=== PATIENT | male | born 1965 | race Caucasian/White ===

== ENCOUNTER 2023-11-30 07:43 | Emergency (ER) | payer OTHER, SELFPAY ==
[2023-11-30 07:50] VITALS: BP 138/88; PULSE 60; RESP 14; O2SAT 98
--- NOTE | 2023-11-30 07:57 | ED.GENADUL_ITS ---
Discharge Plan Disposition Patient Disposition: Home Condition: Stable Discharge Details Clinical Impression: Right ureteral stone ED Provider: Luis Lord Home Meds and New Rx's Prescriptions: New tamsulosin 0.4 mg capsule 0.4 mg PO DAILY Qty: 30 0RF ketorolac 10 mg tablet 10 mg PO QID 5 Days Qty: 20 0RF Rx Instructions: maximum total duration of 5 days from all oral, intranasal, or parenteral formulations ondansetron 4 mg tablet,disintegrating 4 mg PO Q8H PRN (Reason: nausea) Qty: 30 0RF No Action atorvastatin 40 mg tablet lisinopril 20 mg tablet 20 mg Patient Comments: take 1 tablet by mouth once daily FOR HYPERTENSION Discharge Instructions Instructions: Ketorolac (By mouth), Ondansetron (By mouth), Tamsulosin (By mouth), Ureteral Stones (ED) Additional Instructions: You were seen in the emergency department for your right flank pain radiating around to your right lower abdomen, you have a 6 mm stone in your distal right ureter but there is no sign of infected kidney stone, no sign of sepsis. I spoke with urology and this is reasonable to try to pass the stone as an outpatient at home. I have sent I have sent tamsulosin which helps dilate the in [place]. prescriptions for some symptomatic relief medicines to your pharmacy urinary system to allow easier passage of the stone, I have sent an ant i-inflammatory called ketorolacto take for the next 5 days, take 1000 mg of Tylenol 4 times per day about alf in between anti-inflammatory doses as well. I have sent ondansetron a dissolving tablet that goes under your tongue for nausea to take 3 times per day, please stay aggressively hydrated to help push the stone through your urinary system. I have sent you home with a small to go pack of oxycodone for breakthrough pain for the first day or 2. Please return to the emergency department should you develop severe increase in pain especially with urinary retention, worsening fevers. Please follow-up with urology as needed, I can send a referral to our urology practice but if you are already connected with your history of kidney stones through another practice please follow-up with them. Referrals: [facility] [Provider Group] HPI General Date/Time Provider Initiated Documentation: 11/30/23 07:56 . HPI Narrative: 58 year-old male presents to ED today by POV/ambulating with his with a chief complaint of R flank pain, radiating around to his anterior lower abdomen and testicular pain with onset noted this morning around 0400. Quality described as different than past kidney stone pain, significant causing nausea, denies heavy lifting but was shoveling snow all day yesterday, no radiation to vomiting, discharge, dysuria, other abdominal pain, chest pain, shortness of breath, fever- does endorse sweating due to pain earlier this morning. Severity is described as 04/16. Palliating factors include took 1g Tylenol just prior to arrival. Provoking factors include nothing specific. Patient states he has not had a bowel movement since this started. Patient not anticoagulated. Related Data Home Medications Medication Instructions Recorded Confirmed atorvastatin 40 mg tablet mg 11/30/23 ketorolac 10 mg tablet 10 mg PO QID renal stone 5 days 11/30/23 #20 tabs lisinopril 20 mg tablet 20 mg 11/30/23 ondansetron 4 mg disintegrating 4 mg PO Q8H PRN nausea #30 tabs 11/30/23 tablet tamsulosin 0.4 mg capsule 0.4 mg PO DAILY kidney stone #30 11/30/23 caps Previous Rx's Medication Instructions Recorded ketorolac 10 mg tablet 10 mg PO QID renal stone 5 days 11/30/23 #20 tabs ondansetron 4 mg disintegrating 4 mg PO Q8H PRN nausea #30 tabs 11/30/23 tablet tamsulosin 0.4 mg capsule 0.4 mg PO DAILY kidney stone #30 11/30/23 caps General Stated Complaint: Nk/Back Pain ISHA: 4 Review of Systems All systems reviewed & are unremarkable except as noted in HPI and below Exam Narrative Exam Narrative: GENERAL APPEARANCE: Well-nourished, non-toxic, awake and alert, atraumatic, no acute distress. SKIN: Warm, pink, dry, intact, without rashes/lesions/ulcerations. HEAD: Normocephalic, atraumatic, normal hair distribution for gender/age. EYES: Pupils PERRLA, EOMs intact without nystagmus, normal conjunctiva, no exudates on lids/lashes. ENT: Nares patent, no circumoral cyanosis, no facial swelling NECK: Supple, trachea midline, painless cervical ROM. LUNGS/CHEST: Lungs CTA bilaterally- no rhonchi/rales/wheezes diffusely, non- labored respirations, normal A/P diameter, symmetrical expansion, no chest wall deformity HEART (CV/PV): Regular rate and rhythm without murmur, no peripheral edema, no JVD. ABDOMEN: Soft, non-distended, no guarding, RLQ tenderness, R CVA tenderness to percussion, bulge palpated at R inguinal canal, no testicular tenderness or swelling. MSK: Normal ROM, no swelling/deformity to bilateral UEs or LEs, moving all extremities without weakness, no cyanosis, spine midline without tenderness, normal curvature. NEURO: Mental Status AAOx4 - alert to person, place, time, events No facial droop, no forehead involvement. Motor: No focal weakness - strength 5/5 in bilateral UEs and LEs, proximal and distal, symmetric. Sensory: sensation intact to light touch globally. Gait normal: patient ambulated without ataxia into ED room. PSYCH: euthymic, cooperative, pleasant, appropriate speech Course Vital Signs Vital signs: Vital Signs Pulse 60 11/30/23 07:50 Respiratory Rate 14 11/30/23 07:50 Blood Pressure 138/88 11/30/23 07:50 Pulse Oximetry 98 11/30/23 07:50 Pulse 60 11/30/23 07:50 Respiratory Rate 14 11/30/23 07:50 Blood Pressure 138/88 11/30/23 07:50 Blood Pressure Position Sitting 11/30/23 07:50 Pulse Oximetry 98 11/30/23 07:50 Oxygen Delivery Method Room Air 11/30/23 07:50 Oxygen Flow Rate 0 11/30/23 07:50 Medical Decision Making This dictation utilizes [id number] dictation software and may contain unedited grammatical errors. 58 y/o M presents to ED today with a chief complaint of R lower abdominal pain, R flank pain, history of kidney stones, and active R testicular pain. Pain is causing nausea without vomiting, and had some sweating this morning without fever. Started around 0400. Patient was shoveling snow yesterday. Patients' medical history: History of renal stones. Family and social history: no recent travel. Pertinent exam findings / vital signs include right CVA tenderness, right lower quadrant abdominal tenderness, bulge felt at right inguinal canal, nontoxic vitals, benign cardiopulmonary status, neuro intact. Differential / pathologies of concern include hernia, incarcerated hernia, ureteral stone, pyelonephritis or UTI, appendicitis. Diagnostic studies of: -CBC, CMP, lactate, lipase, CRP/ESR, magnesium, urinalysis, CT abdomen without and with contrast for renal protocol as well as incarcerated hernia rule out. -CBC shows no leukocytosis or anemia -CMP shows bilirubin slightly elevated at 1.1 otherwise benign -Lactate 1.8 -magnesium WNL -Lipase WNL -CRP/ESR negative -UA shows no UTI, +protein +blood -CT shows 6mm R ureteral stone, mild hydro, consulting Urology Interventions of: -2L IV NS, 15mg IV ketorlac, 4mg IV ondansetron, 4mg IV morphine, 0.4mg tamsulo sin PO. ED Course/Assessment/Plan: 58-year-old male presents with right flank pain radiating around to the right lower quadrant of his abdomen, he has a history of renal stones but states this feels differently. His vitals are stable and he has no elevated white blood cell count, the CT does show a 6 mm ureteral stone with some mild right hydronephrosis. Urine sample shows no UTI, consulted with urology, patient was given 2 L of IV fluid here and started on tamsulosin. Consulted KAYLEE Jorge of [facility] Urology, recommends at-home trial with symptomatic treatments of tamsulosin, ketorlac, zofran PRN for 2-4 weeks and f/u with [facility] urology or prior established Urology practice Findings not consistent with infected ureteral stone, sepsis, incarcerated hernia. Disposition of Right Ureteral Stone. Patient verbalized understanding of the plan and return to ED criteria and engaged in shared decision making. Medical Records Medical records narrative: None in [facility] system Imaging Data Radiologic Study: Attestation: I personally reviewed and interpreted this imaging study as follows: Imaging: CT Scan Radiologist's impression: EXAM: CT ABDOMEN PELVIS WO/W CLINICAL HISTORY: R flank pain, hx stones, bulge at inguinal. TECHNIQUE: Imaging Protocol: Axial computed tomography images with coronal and sagittal reformatted images were created and reviewed. CONTRAST MATERIAL: Noncontrast COMPARISON: No exams were available for comparison FINDINGS: ABDOMEN: Lung Bases: Normal where visualized. Liver: Normal attenuation. No measurable mass. Gallbladder and biliary tract: No radiodense calculus or dilation. Pancreas: Normal density, no calcifications or inflammatory process. Spleen: Normal. Kidneys: Normal size, contour and axis. 6 millimeter stone noted at distal right ureter causing mild hydronephrosis. No masses seen. Adrenal glands: No masses seen. Abdominal Aorta: Abdominal portion non-dilated. Soft tissues: Unremarkable. No evidence of inguinal hernia. PELVIS: Bladder: Symmetric distention, no gross wall thickening. No evidence of stones.No visible mass. Bowel: No obstruction or bowel wall thickening. Normal quantity of stool. Diverticulosis. No evidence of diverticulitis. Reproductive: Unremarkable. Peritoneal cavity: No ascites, collection or mesenteric inflammatory response. Bones: Unremarkable for age.. IMPRESSION: 6 millimeter stone in the distal right ureter causing mild right hydronephrosis. No evidence of inguinal hernia. Lab Data Lab results reviewed: Yes I reviewed the patient's lab results. Labs: Laboratory Tests Range/Units 11/30/23 11/30/23 08:20 09:40 WBC (4.4-10.8) 10^3/uL 5.56 RBC (4.36-5.78) 10^6/uL 4.49 Hgb (13.5-17.5) g/dL 14.5 Hct (40.0-50.0) % 43.3 MCV (80-95) fL 96 H MCH (27.0-33.0) pg 32.3 MCHC (32.0-36.0) % 33.5 RDW (11.8-14.1) % 12.4 Plt Count (130-400) 10^3/uL 168 MPV (8.0-11.0) fL 9.0 Immature Gran % 0.4 Neutrophils % 65.6 Lymphocytes % 25.7 Monocytes % 6.8 Eosinophils % 1.1 Basophils % 0.4 Nucleated RBC % (0.0-0.3) % 0.0 Absolute Neutrophils (1.2-6.7) 10^3/uL 3.65 Absolute Lymphocytes (1.2-3.4) 10^3/uL 1.43 Absolute Monocytes (0.1-0.8) 10^3/uL 0.38 Absolute Eosinophils (0.0-0.7) 10^3/uL 0.06 Absolute Basophils (0.0-0.2) 10^3/uL 0.02 ESR (0-20) mm/hr 3 VBG Lactate (0.6-1.4) mmol/L 1.8 H Sodium (136-145) mmol/L 141 Potassium (3.5-5.1) mmol/L 4.5 Chloride (98-107) mmol/L 104 Carbon Dioxide (21.0-32.0) mmol/L 28.2 Anion Gap (3-11) mmol/L 8.8 BUN (7-18) mg/dL 14 Creatinine (0.70-1.30) mg/dL 1.2 Est GFR (CKD-EPI 2020) (mL/min/1.73m2) 69.66 Glucose (74-106) mg/dL 145 H Calcium (8.5-10.1) mg/dL 9.1 Magnesium (1.8-2.4) mg/dL 2.2 Total Bilirubin (0.2-1.0) mg/dL 1.1 H AST (15-37) U/L 21 ALT (16-63) U/L 46 Alkaline Phosphatase (46-116) U/L 92 C-Reactive Protein (<or=0.5) mg/dL < 0.50 Total Protein (6.4-8.2) g/dL 7.4 Albumin (3.4-5.0) g/dL 4.0 Lipase (16-77) U/L 33 Urine Color (Yellow) Dana Urine Clarity (Clear) Cloudy Urine pH (5-8) 5.5 Ur Specific Bath (1.005-1.025) 1.010 Urine Protein (Neg-Trace) mg/dL 100 H Urine Ketones (Negative) mg/dL Negative Urine Blood (Negative) Large H Urine Nitrite (Negative) Negative Urine Bilirubin (Negative) Negative Urine Urobilinogen (Up to 0.2) mg/dL 0.2 Ur Leukocyte Esterase (Negative) Negative Urine RBC (0-2) HPF >50 H Urine WBC (0-5) HPF 0-2 Ur Epithelial Cells (Negative) HPF Few Urine Crystals (Negative) HPF Negative Urine Bacteria (Negative) HPF Negative Urine Casts (Negative) LPF 0-2 Hyaline Urine Mucus (Negative) Trace Ur Culture Indicated? No Urine Glucose (Negative) mg/dL Negative Quality:SDOH Health Related Social Needs: No Data to Display PFSH All Active Problems (Updated 11/30/23 @ 10:55 by KAYLEE Hogue) Right ureteral stone (Acute) Social History Smoking/Tobacco Use Status: Never Smoking risk assessment performed?: Yes Alcohol Intake: current Alcohol Intake frequency: 0-2 drinks per day Drug use: Never Substance use type: does not use Housing: house Do you feel safe at home: Yes Do you feel safe in your relationship?: Yes
[2023-11-30 08:25] LABS: Lactate 1.8 mmol/L (0.6-1.4)
[2023-11-30 08:27] LABS: Abs Immature Grans 0.02 10^3/uL (0.0-0.06); Absolute Basophil Count 0.02 10^3/uL (0.0-0.2); Absolute Eosinophil Count 0.06 10^3/uL (0.0-0.7); Absolute Lymphocyte Count 1.43 10^3/uL (1.2-3.4); Absolute Monocyte Count 0.38 10^3/uL (0.1-0.8); Absolute Neutrophil Count 3.65 10^3/uL (1.2-6.7); Basophils % 0.4; Eosinophils % 1.1; HCT 43.3 % (40.0-50.0); HGB 14.5 g/dL (13.5-17.5); Immature Grans % 0.4; Lymphocytes % 25.7; MCH 32.3 pg (27.0-33.0); MCHC 33.5 % (32.0-36.0); MCV 96 fL (80-95); Monocytes % 6.8; Neutrophils % 65.6; Platelet Count 168 10^3/uL (130-400); RBC 4.49 10^6/uL (4.36-5.78); RDW 12.4 % (11.8-14.1); RDW-SD 44.3 fL; WBC 5.56 10^3/uL (4.4-10.8)
[2023-11-30 08:28] LABS: ESR 3 mm/hr (0-20)
[2023-11-30] MEDS: Normal Saline 1,000 ML 1000 ML IV ×2 (08:30→10:15)
[2023-11-30] MEDS: Ketorolac 15 MG/ML VIAL IVP (08:31)
[2023-11-30] MEDS: Ondansetron 4 MG/2 ML VIAL IVP (08:32)
[2023-11-30 08:34] VITALS: O2SAT 100
[2023-11-30 08:40] VITALS: O2SAT 100
[2023-11-30 08:46] LABS: ALT 46 U/L (16-63); AST 21 U/L (15-37); Alkaline Phosphatase 92 U/L (46-116); Anion Gap 8.8 mmol/L (3-11); BUN 14 mg/dL (7-18); Bilirubin, Total 1.1 mg/dL (0.2-1.0); C-Reactive Protein < 0.50 mg/dL (<or=0.5); CO2 28.2 mmol/L (21.0-32.0); CREATININE 1.2 mg/dL (0.70-1.30); Calcium 9.1 mg/dL (8.5-10.1); Chloride 104 mmol/L (98-107); Estimated GFR 69.66 (mL/min/1.73m2); Glucose 145 mg/dL (74-106); Lipase 33 U/L (16-77); Magnesium 2.2 mg/dL (1.8-2.4); Potassium 4.5 mmol/L (3.5-5.1); Sodium 141 mmol/L (136-145); Total Protein 7.4 g/dL (6.4-8.2)
[2023-11-30] MEDS: Omnipaque 350 MG/ML 500 ML BTL-Imaging package 100 ML IJ (09:03)
[2023-11-30] MEDS: Normal Saline - Diluent 50 ML VIAL IJ (09:07)
--- NOTE | 2023-11-30 09:12 | DI.CT_ITS ---
Exam(s) CT ABDOMEN PELVIS WO/W EXAM: CT ABDOMEN PELVIS WO/W CLINICAL HISTORY: R flank pain, hx stones, bulge at inguinal. TECHNIQUE: Imaging Protocol: Axial computed tomography images with coronal and sagittal reformatted images were created and reviewed. CONTRAST MATERIAL: Noncontrast COMPARISON: No exams were available for comparison FINDINGS: ABDOMEN: Lung Bases: Normal where visualized. Liver: Normal attenuation. No measurable mass. Gallbladder and biliary tract: No radiodense calculus or dilation. Pancreas: Normal density, no calcifications or inflammatory process. Spleen: Normal. Kidneys: Normal size, contour and axis. 6 millimeter stone noted at distal right ureter causing mild hydronephrosis. No masses seen. Adrenal glands: No masses seen. Abdominal Aorta: Abdominal portion non-dilated. Soft tissues: Unremarkable. No evidence of inguinal hernia. PELVIS: Bladder: Symmetric distention, no gross wall thickening. No evidence of stones.No visible mass. Bowel: No obstruction or bowel wall thickening. Normal quantity of stool. Diverticulosis. No evid ence of diverticulitis. Reproductive: Unremarkable. Peritoneal cavity: No ascites, collection or mesenteric inflammatory response. Bones: Unremarkable for age.. IMPRESSION: 6 millimeter stone in the distal right ureter causing mild right hydronephrosis. No evidence of ingu inal hernia. RADIATION DOSE DELIVERED: Total DLP Total DLP DATA REPOSITORY: All CT scans at this facility are submitted to the National Radiology Data Registry (NRDR) Dose Index Registry (DIR) with the [employer] ([employer]). RADIATION OPTIMIZATION: All CT scans at this facility use at least one of these dose optimization te chniques: automated exposure control; mA and/or kV adjustment per patient size (includes targeted exa ms where dose is matched to clinical indication); or iterative reconstruction.
[2023-11-30] MEDS: MORPHine 4 MG/ML SYR IVP (09:16)
[2023-11-30] MEDS: Tamsulosin 0.4 MG CAPCR PO (09:35)
[2023-11-30 09:47] LABS: Bilirubin Negative (Negative); Blood Large (Negative); Clarity Cloudy (Clear); Glucose Negative (Negative); Ketones Negative (Negative); Leukocyte Esterase Negative (Negative); Nitrite Negative (Negative); Urobilinogen 0.2 mg/dL (Up to 0.2); pH 5.5 (5-8)
[2023-11-30 09:54] LABS: Bacteria Negative HPF (Negative); C & S Indicated? No; Casts 0-2 Hyaline LPF (Negative); Crystals Negative HPF (Negative); Epithelial Cells Few HPF (Negative); Mucus Trace (Negative); RBC >50 HPF (0-2); WBC 0-2 HPF (0-5)
--- NOTE | 2023-11-30 10:15 | NUR.NOTE ---
report received and care assumed
== END 2023-11-30 11:09 | disposition home or self-care (01) ==
PROVIDERS: Emergency Provider Physician Assistant
DX: N13.2 Hydronephrosis with renal and ureteral calculous obstruction (principal)
CPT/HCPCS: 80053; 83690; 85652; 96361; 96374; 96375; 99284; 74178; 81003; 81015; 83605; 83735; 85025; 86140; J1885; J2270; J2405